=== PATIENT | female | born 1990 | race African-American/Black ===

== ENCOUNTER 2020-10-14 21:15 | Emergency (ER) | payer OTHER ==
[~2020-10-14] VITALS: Ht 160 cm; Wt 81.6 kg
[2020-10-14 21:21] VITALS: Ht 160 cm; Wt 81.6 kg
[2020-10-14 23:41] VITALS: BP 124/69
== END 2020-10-14 23:41 | disposition home or self-care (01) ==
LOC: ED 21:15
DX: S50.12XA Contusion of left forearm, initial encounter (principal); S50.11XA Contusion of right forearm, initial encounter; W17.89XA Other fall from one level to another, initial encounter; Y93.89 Activity, other specified; Y92.89 Other specified places as the place of occurrence of the external cause; Y99.8 Other external cause status
CPT/HCPCS: 90715